=== PATIENT | male | born 1995 | race Caucasian/White ===

== ENCOUNTER 2021-10-15 00:04 | Emergency (ER) | payer OTHER ==
[2021-10-15] MEDS ORDERED: Chlorthalidone 25 MG Tab PO STA (01:00)
== END 2021-10-15 01:41 | disposition home or self-care (01) ==
LOC: MW.ED 00:04
DX: S00.81XA Abrasion of other part of head, initial encounter (principal); V89.9XXA Person injured in unspecified vehicle accident, initial encounter; Y92.410 Unspecified street and highway as the place of occurrence of the external cause
CPT/HCPCS: 99282; 99284

== ENCOUNTER 2024-02-16 21:03 | Emergency (ER) | payer SELFPAY ==
[2024-02-16] MEDS: Famotidine 20 MG Tab PO ONE (21:42)
[2024-02-16] MEDS: Ondansetron 4 MG Tab.DIS PO ONE (21:42)
== END 2024-02-16 21:45 | disposition home or self-care (01) ==
LOC: MW.ED 21:03
DX: B34.9 Viral infection, unspecified (principal); Z75.8 Other problems related to medical facilities and other health care
CPT/HCPCS: 99283; A9270